=== PATIENT | female | born 1975 ===

== ENCOUNTER 2021-09-14 14:26 | Emergency (ER) | payer OTHER, MEDICAID, SELFPAY ==
[2021-09-14 14:45] VITALS: BP 173/74; PULSE 81; RESP 20; TEMP 36.6; O2SAT 100; BMI 24.2
--- NOTE | 2021-09-14 14:52 | DI.RAD.S_ITS ---
PROCEDURE: XR CHEST 1V INDICATIONS: CP TECHNIQUE: One view of the chest was acquired. COMPARISON: None. FINDINGS: Surgical changes and devices: Surgical clips are seen in bilateral axilla.. Lungs and pleura: Lungs are clear. No pleural effusions or pneumothorax. Mediastinum: Mediastinal contours appear normal. Heart size is normal. Bones and chest wall: No suspicious bony lesions. Subacute to chronic appearing deformity involving left posterior lateral 7th rib is seen. Overlying soft tissues appear unremarkable. IMPRESSION: No acute cardiopulmonary pathology. Subacute to chronic appearing deformity involving left posterior lateral 7th rib. Dictated by: Narinder Fernandes M.D. on 09/14/2021 at 15:43 Approved by: Narinder Fernandes M.D. on 09/14/2021 at 15:49
[2021-09-14 15:35] LABS: Add Manual Diff / Slide Review NO; Basophils Absolute Auto 100 /uL (0-100); Eosinophils Absolute Auto 300 /uL (0-450); Eosinophils Percent Auto 3.3 % (2-4); Hematocrit 41.1 % (36-46); Hemoglobin 13.9 g/dL (12.0-16.0); Lymphocytes Absolute Auto 2700 /uL (1100-4500); Lymphocytes Percent Auto 30.7 % (25-40); Mean Corpuscular HGB Conc 33.7 % (30-36); Mean Corpuscular Hemoglobin 29.3 PG (26-34); Monocytes Absolute Auto 400 /uL (0-900); Monocytes Percent Auto 4.4 % (3-14); Neutrophils Absolute Auto 5200 /uL (1500-7000); Neutrophils Percent Auto 60.6 % (50-75); Platelet Count 213 X10^3/uL (150-400); Red Blood Cell Count 4.73 X10^6/uL (4.0-5.2); Red Cell Distribution Width 13.5 % (11.6-14.8); White Blood Cell Count 8.6 X10^3/uL (4.5-11.0)
[2021-09-14 15:36] LABS: COVID19 -Nasal RAPID POSITIVE (Negative)
[2021-09-14 15:43] LABS: D Dimer < 200 ng/mL (<230)
[2021-09-14 15:44] LABS: Alanine Aminotransferase 14 IU/L (<35); Albumin 3.9 g/dL (3.5-5.0); Albumin Globulin Ratio 1.2 (1.0-2.8); Alkaline Phosphatase 59 U/L (38-126); Aspartate Aminotransferase 16 IU/L (14-36); BUN Creatinine Ratio 26.9 (6-22); Bilirubin Total 0.5 mg/dL (0.2-1.3); Blood Urea Nitrogen 14 mg/dL (7-17); Calcium 8.6 mg/dL (8.4-10.2); Carbon Dioxide 24 mmol/L (22-32); Chloride 105 mmol/L (98-107); Creatine Kinase 44 U/L (30-135); Estimated Glomerular Filt Rate > 60.0 mL/min (>60); Globulin 3.2 g/dL (1.7-4.1); Glucose 215 mg/dL (70-100); HEMOLYSIS < 15 (0-50); Lipase 20 U/L (23-300); Potassium 4.3 mmol/L (3.4-5.1); Sodium 136 mmol/L (137-145); Total Protein 7.1 g/dL (6.3-8.2)
[2021-09-14 15:56] LABS: Troponin I < 0.012 ng/mL (0.01-0.034)
--- NOTE | 2021-09-14 16:42 | ED_ITS ---
HPI - Chest Pain General Chief Complaint: Chest Pain Stated Complaint: SOB and Chest Pain, Exposure, Type 2 Diabetic Time Seen by Provider: 09/14/21 16:41 Source: patient Mode of arrival: Ambulatory History of Present Illness HPI narrative: 45-year-old type 2 diabetic fully vaccinated on day 4 of COVID-19 symptoms consisting of cough, fevers, general myalgias and malaise. She denies chest pain or palpitations. She is not having vomiting nausea or diarrhea. Related Data Previous Rx's Medication Instructions Recorded benzonatate 100 mg capsule 100 mg PO TID PRN #30 cap 09/14/21 (Tessalrina Gresham) Allergies Allergy/AdvReac Type Severity Reaction Status Date / Time No Known Drug Allergies Allergy Verified 09/14/21 14:56 Review of Systems Review of Systems Narrative: Remainder of complete review of systems is otherwise unremarkable e xcept for that included in the HPI. Patient History Medical History (Updated 09/14/21 @ 17:52 by Vivian Metzger MD) Pneumonia due to COVID-19 virus Social History Smoking Status: Current every day smoker Smoking Status: Current every day smoker tobacco type: cigarettes Exam Narrative Exam Narrative: General: Healthy appearing, appears mildly ill but Able to give a complete and coherent history. Well-nourished well-developed HEENT: Moist mucous membranes, normal sclera with reactive pupils, Respiratory: Lungs are clear to auscultation, no wheezing no rales no rhonchi. Full and symmetrical air movement Cardiac: Regular rate and rhythm no murmurs no bruits Abdomen: Soft, nontender, good bowel tones, no flank pain Skin: Warm and dry, no rashes Neurologic: Grossly neurologically intact with no obvious asymmetries or abnormalities Extremities: No trauma, well perfused Psych: Cooperative, appropriate insight and affect Initial Vital Signs Initial Vital Signs: Vital Signs Temperature 97.8 F 09/14/21 14:45 Pulse Rate 81 09/14/21 14:45 Respiratory Rate 20 09/14/21 14:45 Blood Pressure 173/74 H 09/14/21 14:45 Pulse Oximetry 100 09/14/21 14:45 Course Orders Ordered: ED Orders 09/14/21 14:52 XR chest 1V Stat Urinalysis and Microscopic Stat EKG-12 Lead Stat 09/14/21 14:58 COVID19 -Nasal swab/Pre-Proc Stat 09/14/21 15:24 Complete Blood Count AUTO DIFF Stat Comprehensive Metabolic Panel Stat D Dimer Stat Lipase Stat Troponin & CK Cardiac Panel Stat Discontinued Medications Aspirin (Aspirin 81 Mg Chew Tab) 324 mg PO NOW ONE Stop: 09/14/21 14:53 Last Admin: 09/14/21 15:18 Dose: Not Given Documented by: ALICEOTEM Vital Signs Vital signs: Vital Signs - 8 hr 09/14/21 14:45 Temperature 97.8 F Pulse Rate 81 Respiratory Rate 20 Blood Pressure 173/74 H Pulse Oximetry 100 MDM - Chest Pain Lab Data Result diagrams: 09/14/21 15:24 09/14/21 15:24 Labs: Lab Results 09/14/21 09/14/21 09/14/21 Range/Units 14:58 15:24 15:24 WBC 8.6 (4.5-11.0) X10^3/uL RBC 4.73 (4.0-5.2) X10^6/uL Hgb 13.9 (12.0-16.0) g/dL Hct 41.1 (36-46) % MCV 87.0 (80-100) fL MCH 29.3 (26-34) PG MCHC 33.7 (30-36) % RDW 13.5 (11.6-14.8) % Plt Count 213 (150-400) X10^3/uL Neut % (Auto) 60.6 (50-75) % Lymph % (Auto) 30.7 (25-40) % [place] % (Auto) 4.4 (3-14) % Eos % (Auto) 3.3 (2-4) % Baso % (Auto) 1.0 (0-2) % Neut # (Auto) 5200 (6184-2486) /uL Lymph # (Auto) 2700 (9966-4332) /uL [place] # (Auto) 400 (0-900) /uL Eos # (Auto) 300 (0-450) /uL Baso # (Auto) 100 (0-100) /uL D-Dimer < 200 (<230) ng/mL Sodium (137-145) mmol/L Potassium (3.4-5.1) mmol/L Chloride (98-107) mmol/L Carbon Dioxide (22-32) mmol/L BUN (7-17) mg/dL Creatinine (0.52-1.04) mg/dL Estimated GFR (>60) mL/min BUN/Creatinine Ratio (6-22) Glucose (70-100) mg/dL Calcium (8.4-10.2) mg/dL Total Bilirubin (0.2-1.3) mg/dL AST (14-36) IU/L ALT (<35) IU/L Alkaline Phosphatase (38-126) U/L Total Creatine Kinase (30-135) U/L CK-MB (CK-2) CK-MB (CK-2) Rel Index Troponin I (0.01-0.034) ng/mL Total Protein (6.3-8.2) g/dL Albumin (3.5-5.0) g/dL Globulin (1.7-4.1) g/dL Albumin/Globulin Ratio (1.0-2.8) Lipase (23-300) U/L SARS-CoV-2 (PCR) Positive H (Negative) 09/14/21 Range/Units 15:24 WBC (4.5-11.0) X10^3/uL RBC (4.0-5.2) X10^6/uL Hgb (12.0-16.0) g/dL Hct (36-46) % MCV (80-100) fL MCH (26-34) PG MCHC (30-36) % RDW (11.6-14.8) % Plt Count (150-400) X10^3/uL Neut % (Auto) (50-75) % Lymph % (Auto) (25-40) % [place] % (Auto) (3-14) % Eos % (Auto) (2-4) % Baso % (Auto) (0-2) % Neut # (Auto) (5798-3434) /uL Lymph # (Auto) (5243-4270) /uL [place] # (Auto) (0-900) /uL Eos # (Auto) (0-450) /uL Baso # (Auto) (0-100) /uL D-Dimer (<230) ng/mL Sodium 136 L (137-145) mmol/L Potassium 4.3 (3.4-5.1) mmol/L Chloride 105 (98-107) mmol/L Carbon Dioxide 24 (22-32) mmol/L BUN 14 (7-17) mg/dL Creatinine 0.52 (0.52-1.04) mg/dL Estimated GFR > 60.0 (>60) mL/min BUN/Creatinine Ratio 26.9 H (6-22) Glucose 215 H (70-100) mg/dL Calcium 8.6 (8.4-10.2) mg/dL Total Bilirubin 0.5 (0.2-1.3) mg/dL AST 16 (14-36) IU/L ALT 14 (<35) IU/L Alkaline Phosphatase 59 (38-126) U/L Total Creatine Kinase 44 (30-135) U/L CK-MB (CK-2) TNP CK-MB (CK-2) Rel Index TNP Troponin I < 0.012 (0.01-0.034) ng/mL Total Protein 7.1 (6.3-8.2) g/dL Albumin 3.9 (3.5-5.0) g/dL Globulin 3.2 (1.7-4.1) g/dL Albumin/Globulin Ratio 1.2 (1.0-2.8) Lipase 20 L (23-300) U/L SARS-CoV-2 (PCR) (Negative) Imaging Data Chest x-ray: Radiologist's Impression: FINDINGS: Surgical changes and devices: Surgical clips are seen in bilateral axilla.. Lungs and pleura: Lungs are clear. No pleural effusions or pneumothorax. Mediastinum: Mediastinal contours appear normal. Heart size is normal. Bones and chest wall: No suspicious bony lesions. Subacute to chronic appearing deformity involving left posterior lateral 7th rib is seen. Overlying soft tissues appear unremarkable. IMPRESSION: No acute cardiopulmonary pathology. Subacute to chronic appearing deformity involving left posterior lateral 7th rib. Dictated by: Narinder Fernandes M.D. on 09/14/2021 at 15:43 ECG Data Interpretation: Sinus rhythm at a rate of 72 Normal axis, normal intervals No acute ischemic changes MDM Narrative Medical decision making narrative: 45-year-old woman fully vaccinated COVID positive day for not requiring oxygen. With her diabetes she qualifies for monoclonal antibody treatment. Order sheet is faxed to the [facility] in [place]. She is safe for home discharge Discharge Plan Departure Patient Disposition: Home Clinical Impression: 2019 novel coronavirus-infected pneumonia (NCIP) Instructions: DI for COVID-19 (Suspected or Confirmed ) Activity Restrictions/Additional Instructions: Your information has been faxed along with orders for monoclonal antibody treatment to [facility] in [place]. Please expect a call from them to set up a time to come in for your infusion. I hope you heal quickly and completely. Prescriptions: New benzonatate [Tessalon Perles] 100 mg capsule 100 mg PO TID PRN (Reason: cough) Qty: 30 RF: 0
[2021-09-14] MEDS: BENZONATATE 100 MG CAPSULE PO (18:22)
[2021-09-14 18:31] VITALS: BP 132/79; PULSE 91; RESP 20; O2SAT 97
== END 2021-09-14 18:32 | disposition home or self-care (01) ==
PROVIDERS: Emergency Provider Emergency Medicine
DX: U07.1 COVID-19 (principal); R07.9 Chest pain, unspecified
CPT/HCPCS: 36415; 71045; 80053; 82550; 83690; 84484; 85025; 85379; 87635; 93005; 93010; 99284; C9803